=== PATIENT | female | born 1990 | race Hispanic/Latino ===

== ENCOUNTER 2017-09-29 19:17 | Observation (INO) | payer BC ==
[~2017-09-29] VITALS: Ht 160 cm; Wt 73.0 kg
[2017-09-29 20:01] LABS: APPEARANCE,URINE SL CLOUDY (CLEAR); BILIRUBIN,URINE NEGATIVE (NEGATIVE); COLOR,URINE YELLOW (YELLOW); GLUCOSE, URINE (UA) NEGATIVE (NEGATIVE); KETONES,URINE NEGATIVE (NEGATIVE); LEUKOCYTE ESTERASE ,URINE NEGATIVE (NEGATIVE); NITRATE,URINE NEGATIVE (NEGATIVE); OCCULT BLOOD,URINE NEGATIVE (NEGATIVE); PH,URINE 6.5 (5.0-8.0); PROTEIN,URINE NEGATIVE (NEGATIVE); UROBILINOGEN,URINE 0.2 mg/dL (0.2-1.0)
[2017-09-29 20:10] LABS: AMPHET/METH SCREEN,URINE NEGATIVE (NEGATIVE); BARBITURATE SCREEN, URINE NEGATIVE (NEGATIVE); BENZODIAZEPINES SCREEN,URINE NEGATIVE (NEGATIVE); CANNABINOID SCREEN,URINE NEGATIVE (NEGATIVE); COCAINE SCREEN,URINE NEGATIVE (NEGATIVE); OPIATE SCREEN,URINE NEGATIVE (NEGATIVE); PHENCYCLIDINE SCREEN,URINE NEGATIVE (NEGATIVE)
[2017-09-29 20:47] LABS: BACTERIA,URINE Rare /HPF (None Seen); RBC,URINE None Seen /HPF (0-1); SQUAMOUS EPITHELIAL CELL,UR None Seen /HPF (0-2); WBC,URINE 0-1 /HPF (0-1)
== END 2017-09-29 22:40 | disposition home or self-care (01) ==
LOC: LDH 19:17
PROVIDERS: ADMIT Obstetrics & Gynecology; ATTEND Obstetrics & Gynecology
DX: O42.913 Preterm premature rupture of membranes, unspecified as to length of time between rupture and onset of labor, third trimester (principal); O60.03 Preterm labor without delivery, third trimester; Z3A.29 29 weeks gestation of pregnancy
CPT/HCPCS: 76815; 80305; 81001; G0378 ×4

== ENCOUNTER 2017-12-09 16:19 | Inpatient (IN) | payer BC ==
[~2017-12-09 16:19] MED LIST: KETAMINE HCL 100 MG/ML 5ML VIAL IJ ONE
[2017-12-11] MEDS ORDERED: METHYLERGONOVINE MALEATE 0.2 MG/1 ML ML ONE (07:32)
[2017-12-14] MEDS ORDERED: LIDOCAINE 2%-EPI 1:200,000 20 ML VIAL IJ ONE ×2 (12:00)
[2017-12-14] MEDS ORDERED: EPHEDRINE SULFATE 50 MG/ML AMPULE IM ONE (12:00)
[2017-12-14] MEDS ORDERED: LACTATED RINGERS 1000ML 1,000 ML IV PRN (17:24)
[2017-12-14] MEDS ORDERED: OXYTOCIN-LR 20 UNITS/1000 ML 1,000 ML IV SCH (17:30)
[2017-12-14] MEDS ORDERED: OXYTOCIN 10 USP UNITS/ML 20 UNIT in LACTATED RINGERS 1000ML 1,000 ML IV SCH (17:30)
[2017-12-14 18:09] LABS: HEMATOCRIT 35.6 % (36-48); MEAN CORPUSCULAR HEMOGLOBIN 27.5 pg (27.0-33.0); MEAN CORPUSCULAR HGB CONC 32.9 g/dL (32.0-36.0); MEAN CORPUSCULAR VOLUME 83.7 fL (79-99); PLATELET COUNT (AUTO) 192 K/uL (130-400); RED BLOOD CELL COUNT(AUTO) 4.26 MIL/uL (4.00-5.50); RED CELL DISTRIBUTION WIDTH 15.7 % (11.0-15.5)
[2017-12-14 18:14] LABS: APPEARANCE,URINE Clear (CLEAR); BILIRUBIN,URINE Negative (NEGATIVE); COLOR,URINE Yellow (YELLOW); GLUCOSE, URINE (UA) Negative (NEGATIVE); KETONES,URINE Negative (NEGATIVE); LEUKOCYTE ESTERASE ,URINE Negative (NEGATIVE); NITRATE,URINE Negative (NEGATIVE); OCCULT BLOOD,URINE Negative (NEGATIVE); PROTEIN,URINE Negative (NEGATIVE); UROBILINOGEN,URINE 0.2 mg/dL (0.2-1.0)
[2017-12-15] VITALS (8 sets, daily range): BP systolic 103–125; BP diastolic 52–70
[2017-12-15] MEDS ORDERED: PROMETHAZINE HCL 25 MG/ML 1ML AMPULE IM PRN
[2017-12-15] MEDS ORDERED: MEPERIDINE-PF 25 MG/ML SYG IVP PRN
[2017-12-15] MEDS ORDERED: ACETAMINOPHEN 325 MG TAB ONE (02:04)
[2017-12-15] MEDS ORDERED: ACETAMINOPHEN 325 MG TAB PO ONE (02:15)
[2017-12-15] MEDS ORDERED: LACTATED RINGERS 1000ML 1,000 ML IV ONE (03:44)
[2017-12-15] MEDS ORDERED: OXYTOCIN 10 USP UNITS/ML ONE ×2 (03:45→18:52)
[2017-12-15] MEDS ORDERED: MEPERIDINE-PF 50 MG/ML SYG IVP SCH (07:30)
[2017-12-15] MEDS ORDERED: LACTATED RINGERS 500 ML 500 ML IV PRN (09:30)
[2017-12-15] MEDS ORDERED: NALOXONE HCL 0.4 MG/1 ML ML IV PRN (09:30)
[2017-12-15] MEDS ORDERED: EPHEDRINE SULFATE 50 MG/ML AMPULE IVP PRN (09:30)
[2017-12-15] MEDS ORDERED: LIDOCAINE HCL MPF 1% 5ML VIAL ONE ×2 (13:41→15:20)
[2017-12-15] MEDS ORDERED: CEFAZOLIN SODIUM 1 GM VIAL ONE (14:44)
[2017-12-15] MEDS ORDERED: ACETAMINOPHEN-CODEINE 300/30MG TAB PO PRN (16:15)
[2017-12-15] MEDS ORDERED: LANOLIN 30GM OINTMENT TP PRN (16:15)
[2017-12-15] MEDS ORDERED: ACETAMINOPHEN 325 MG TAB PO PRN (16:15)
[2017-12-15] MEDS ORDERED: BENZOCAINE/LANOLIN/ALOE VERA 60 ML AEROSOL TP PRN (16:15)
[2017-12-15] MEDS ORDERED: WITCH HAZEL 1 PAD TP PRN (16:15)
[2017-12-15] MEDS ORDERED: DIPH,PERTUSS(ACELL),TET VAC/PF 0.5 ML VIAL IM PRN (16:15)
[2017-12-15] MEDS: IBUPROFEN 600 MG TABLET PO PRN (16:31)
[2017-12-15 20:30] LABS: HEMATOCRIT 29.7 % (36-48)
[2017-12-15] MEDS: DOCUSATE SODIUM 100 MG CAP PO SCH (20:48)
[2017-12-16 00:49] VITALS: BP 118/73
[2017-12-16] MEDS: IBUPROFEN 600 MG TABLET PO PRN ×2 (03:35→09:17)
[2017-12-16 05:03] VITALS: BP 130/67
[2017-12-16 05:42] LABS: HEMATOCRIT 26.8 % (36-48); MEAN CORPUSCULAR HEMOGLOBIN 27.7 pg (27.0-33.0); MEAN CORPUSCULAR HGB CONC 33.5 g/dL (32.0-36.0); MEAN CORPUSCULAR VOLUME 82.6 fL (79-99); PLATELET COUNT (AUTO) 165 K/uL (130-400); RED BLOOD CELL COUNT(AUTO) 3.24 MIL/uL (4.00-5.50); RED CELL DISTRIBUTION WIDTH 15.9 % (11.0-15.5); WHITE BLOOD COUNT (AUTO) 17.7 K/uL (4.8-10.8)
[2017-12-16 08:20] VITALS: BP 96/54
[2017-12-16 08:21] LABS: HEPATITIS Bs ANTIGEN SCREEN P Negative (Negative)
[2017-12-16] MEDS: DOCUSATE SODIUM 100 MG CAP PO SCH (09:16)
[2017-12-16 12:10] VITALS: BP 97/58
[2017-12-16 15:39] VITALS: BP 105/63
== END 2017-12-16 16:20 | disposition home or self-care (01) | DRG 775 ==
LOC: PREOBSVTOIN 16:19 → LDH 12-14 16:28 → WSH 12-15 15:50
PROVIDERS: ADMIT Obstetrics & Gynecology; ATTEND Obstetrics & Gynecology
PROC: 10E0XZZ Delivery of Products of Conception, External Approach (ICD-10-PCS; principal; 2017-12-14)
PROC: 0W8NXZZ Division of Female Perineum, External Approach (ICD-10-PCS; 2017-12-14)
PROC: 3E0S3BZ Introduction of Anesthetic Agent into Epidural Space, Percutaneous Approach (ICD-10-PCS; 2017-12-14)
PROC: 00HU33Z Insertion of Infusion Device into Spinal Canal, Percutaneous Approach (ICD-10-PCS; 2017-12-14)
DX: O48.0 Post-term pregnancy (principal); O69.81X0 Labor and delivery complicated by cord around neck, without compression, not applicable or unspecified; O77.0 Labor and delivery complicated by meconium in amniotic fluid; Z37.0 Single live birth; Z3A.40 40 weeks gestation of pregnancy
CPT/HCPCS: 36415; 76819; 81003; 85014; 85018; 85027; 86592; 86850; 86900; 86901; 87340; A4314; J0690; J2175; J2210; J2550; J2590; J3490; J7120